=== PATIENT | female | born 1935 | race Caucasian/White ===

== ENCOUNTER 2017-07-09 20:56 | Inpatient (IN) ==
[2017-07-11] MEDS ORDERED: HydrOXYzine SYP 10 MG/5 ML UDC PO PRN ×2 (11:26→15:56)
[2017-07-11] MEDS: *HR* OxyCODONE Immed Rel 5 MG TABLET PO PRN ×2 (12:29→21:56)
--- NOTE | 2017-07-11 13:37 | Internal Med History&Physical ---
Date of Encounter: 07/11/17 Time of Encounter: 13:35 Assessment and Plan (1) Status post total knee replacement, right Current visit: No Status: Acute PT\OT to eval and treat. Continue current pain regimen. Follow up with ortho as scheduled. (2) HTN (hypertension) Current visit: No Status: Chronic Controlled with current medication. Continue to monitor blood pressure Qualifiers: Hypertension type: essential hypertension Qualified Code(s): I10 - Essential (primary) hypertension (3) Obesity (BMI 35.0-39.9 without comorbidity) Current visit: No Status: Chronic Educate on weight loss and diet. Internal Medicine - H&P: HPI Admitted From: Intrahospital Transfer Plans for Post Hospital Care: Home History of present illness: Ms. Nassar is a 81 year old female admitted to rehab status post right total knee arthroplasty. Patient to participate with PT\OT. Past medical history includes arthritis of right knee, vasculitis, TIA, hypertension. Patient taking oxycodone IR for pain control. States that it is effective. Past Med Surg Social Fam HX - Past Medical History Medical history: cancer, hyperlipidemia, hypertension Psychiatric history: no psych history - Past Surgical History Surgical History: cholecystectomy, other - Social History Smoking Status: Never smoker Smokeless Tobacco Status: No Alcohol use: none Drug use: none - Family History Mother Living Status: Hx Family Cardiac Disorders: Yes Brother Living Status: Internal Medicine - H&P: Meds Levothyroxine [Synthroid] 112 mcg PO DAILY 03/20/15 [History] Metoprolol [Lopressor] 50 mg PO BID 03/20/15 [History] Calcium Carbonate/Vitamin D3 [Calcium 600 + Vit D Tablet] 1 tab PO BID 04/23/16 [History] predniSONE [PredniSONE] 10 mg PO QDPC 03/18/17 [History] Atorvastatin [Lipitor] 20 mg PO HS #30 tablet 03/19/17 [Rx] Lisinopril [Zestril] 5 mg PO DAILY #30 tablet 03/19/17 [Rx] Aspirin [Lo-Dose Aspirin EC] 81 mg PO DAILY 07/11/17 [History] Loratadine [Allergy Relief] 10 mg PO DAILY 07/11/17 [History] hydrOXYzine HCl [Hydroxyzine HCl] 10 mg PO QID PRN 07/11/17 [History] 3 Allergy/AdvReac Type Severity Reaction Status Date / Time No Known Allergies Allergy Verified 03/18/17 09:39 All Systems PM: A 10-system review of systems was performed and is negative for pertinent findings except as documented above in the HPI. - Constitutional Constitutional: no chills, no fever(s), no night sweats - EENT Eyes: no change in vision, no discharge, no pain, no photophobia Ears: no ear discharge, no ear pain, no tinnitus Nose, mouth and throat: no dysphagia, no nasal discharge, no neck pain, no sore throat - Cardiovascular Cardiovascular ROS IM: no chest pain, no diaphoresis, no dyspnea, no lightheadedness, no palpitations, no syncope - Respiratory Respiratory: no cough, no dyspnea, no wheezing, no excessive phlegm production - Gastrointestinal Gastrointestinal: no abdominal pain, no diarrhea, no hematemesis, no hematochezia, no melena, no nausea, no vomiting - Genitourinary Genitourinary: no change in urinary stream, no dysuria, no flank pain, no hematuria - Musculoskeletal Musculoskeletal ROS IM: no numbness, no tingling - Integumentary Integumentary IM: no rash, no unusual bruising - Neurological Neurological ROS: no confusion, no convulsions, no focal weakness, no numbness, no tingling, no tremor(s) - Hematologic/Lymphatic Hematologic/Lymphatic: no easy bruising - Constitutional Vitals: Temp Pulse Resp BP Pulse Ox 98.3 F 71 20 130/49 96 07/11/17 11:16 07/11/17 11:16 07/11/17 11:16 07/11/17 11:16 07/11/17 11:16 General appearance: Present: A&O X 3, pleasant, no acute distress, answers questions appropriately - Head Head exam: Present: atraumatic, normocephalic - Eye Eye exam: Present: PERRL, conjuntiva pink, sclera anicteric Pupils: Present: PERRL - Neck Neck exam general surgery: Present: supple, trachea midline. Absent: lymphadenopathy - Respiratory Respiratory exam: Present: CTAB. Absent: accessory muscle use, rales, rhonchi, wheezes - Cardiovascular Cardiovascular exam: Present: RRR, +S1, +S2. Absent: diastolic murmur, gallop, rubs, systolic murmur - GI/Abdominal GI/Abdominal exam: Present: normal bowel sounds, soft, no peritoneal signs. Absent: distended, tenderness - Extremities Exam Extremities exam: Present: warm, radial pulses palpable and symmetrical. Absent : calf tenderness, cyanotic, pedal edema - Neurological Exam Neurological exam: Present: CN II-XII intact, oriented X3, no focal deficits. Absent: pronater drift, facial droop, speech deficit - Skin Skin exam: Present: dry, intact
[2017-07-11] MEDS ORDERED: Bisacodyl 10 MG RECTAL SUPPOSITORY RC PRN (18:55)
[2017-07-11] MEDS ORDERED: Aspirin Enteric Coated 325 MG Tablet PO SCH (21:00)
[2017-07-11] MEDS ORDERED: NON-FORMULARY MEDICATION 1 EACH EACH (Calcium Carbonate/Vitamin D3 [Calcium 600 + Vit D Ta PO SCH (21:00)
[2017-07-12] MEDS: Acetaminophen 325 MG TABLET PO PRN ×3 (03:12→20:49)
[2017-07-12 06:03] LABS: Basophils # 0.1 K/mcL (0.0-0.2); Basophils % 0.6 %; Eosinophils # 0.3 K/mcL (0.0-0.6); Eosinophils % 3.8 %; Hematocrit 28.1 % (35.3-44.9); Hemoglobin 9.1 g/dL (11.5-15.4); Immature Granulocytes % 0.2 % (0-4); Lymphocytes # 1.9 K/mcL (0.6-4.6); Mean Corpuscular HGB Conc 32.4 g/dL (31.6-35.5); Mean Corpuscular Hemoglobin 32.5 pg (28.0-33.3); Mean Corpuscular Volume 100.4 fL (83.0-100.0); Mean Platelet Volume 10.8 fL (9.4-12.4); Monocytes # 0.8 K/mcL (0.0-1.3); Monocytes % 9.4 %; Neutrophils # 5.2 K/mcL (1.6-8.9); Platelet Count 212 K/mcL (140-400); Red Cell Distribution Width 13.7 % (11.5-14.5)
[2017-07-12 06:06] LABS: INR 1.1; Prothrombin Time 11.5 Seconds (9.4-12.1)
[2017-07-12 06:09] LABS: Activated Partial Thrombo Time 26.4 Seconds (26.0-36.0)
[2017-07-12 06:17] LABS: Calcium 8.9 mg/dL (8.6-10.3); Potassium 3.7 mEq/L (3.5-5.1)
[2017-07-12] MEDS: *HR* Enoxaparin 40 MG/0.4 ML SYRINGE SQ SCH (07:03)
[2017-07-12] MEDS ORDERED: Loratadine 10 MG TABLET PO SCH (09:00)
[2017-07-12] MEDS: predniSONE 10 MG TABLET PO SCH (09:26)
[2017-07-12] MEDS: Cholecalciferol (D-3) 1,000 UNIT TABLET PO SCH (09:27)
[2017-07-12] MEDS: *HR* OxyCODONE Immed Rel 5 MG TABLET PO PRN ×2 (10:53→16:54)
--- NOTE | 2017-07-12 13:46 | Internal Med Progress Note ---
Date of Encounter: 07/12/17 Time of Encounter: 13:45 - Assessment and plan (1) Status post total knee replacement, right Current Visit: No Status: Acute Assessment and plan: Doing well, postop. I believe that change of environment and/or narcotics contributed to mild delirium and/or disorientation. We will continue with therapies as planned and follow. (2) Vasculitis Current Visit: No Status: Chronic Assessment and plan: Clinically stable. We will continue home regimen and follow. (3) HTN (hypertension) Current Visit: No Status: Chronic Assessment and plan: Clinically stable. We will continue home regimen and follow. Qualifiers: Hypertension type: essential hypertension Qualified Code(s): I10 - Essential (primary) hypertension (4) DVT prophylaxis Current Visit: No Status: Acute Assessment and plan: On Lovenox.. (5) Obesity (BMI 35.0-39.9 without comorbidity) Current Visit: No Status: Chronic (6) Urinary retention Current Visit: Yes Status: Acute Assessment and plan: This is long-standing and treated with an implant. She is to have a Milan catheter in place until seen by her urologist. - Time Spent With Patient 25 - 35 minutes - Subjective Interval history: Patient is feeling well. She denies current complaints but is still having pain in her knee. She had a significant event last night at about 9:30 where she was upset that she was being a nor by staff. She remember some details but others are in error. She states she had been trying to get hold of people for 2 hours. However, I was at the nurses station and there are parts of this that do not follow. Other words, she was not ringing her call light which worked at the time. She is not moving her bowels and we discussed the use of suppositories which prefers to wait for another day. - Constitutional Vitals: Temp Pulse Resp BP Pulse Ox 98.3 F 68 17 131/80 97 07/12/17 10:59 07/12/17 10:59 07/12/17 10:59 07/12/17 10:59 07/12/17 10:59 General appearance: Present: A&O X 3, pleasant, no acute distress, answers questions appropriately Exam: Examination: (Except as mentioned above): General: In no apparent distress. Alert and oriented 3. Nondiaphoretic. Head: Atraumatic and normocephalic. Respiratory: No use of accessory muscles. Lungs are clear throughout. Normal airflow. Cardiovascular: Regular rate and rhythm without murmur appreciated. Abdomen: Bowel sounds are normal. No hepatosplenomegaly mass or tenderness appreciated. Obese and therefore difficult to palpate deeply. Extremities: No cyanosis clubbing or edema. Skin: Warm and non-diaphoretic with no new lesions noted. Internal Medicine: Result - Labs CBC & Chem 7: 07/12/17 05:58 07/12/17 05:58 Labs: Short CBC 07/12/17 Range/Units 05:58 WBC 8.2 (4.3-11.1) K/mcL Hgb 9.1 L (11.5-15.4) g/dL Hct 28.1 L (35.3-44.9) % Plt Count 212 (140-400) K/mcL Neutrophils # 5.2 (1.6-8.9) K/mcL BMP 07/12/17 05:58 Sodium 139 Potassium 3.7 Chloride 102 Carbon Dioxide 30 H BUN 26 H Creatinine 1.08 Glucose 101 Calcium 8.9 - ABG Interpretation ABG results: PT/INR, D-dimer PT 11.5 Seconds (9.4-12.1) 07/12/17 05:58 Consult Discharge Plan - Plan Referrals: Elier Quiroz Jr, MD [Primary Care Provider] -
[2017-07-13] MEDS: *HR* Enoxaparin 40 MG/0.4 ML SYRINGE SQ SCH (05:50)
[2017-07-13] MEDS: *HR* OxyCODONE Immed Rel 5 MG TABLET PO PRN ×3 (05:54→18:39)
--- NOTE | 2017-07-13 07:05 | Internal Med Progress Note ---
Date of Encounter: 07/13/17 Time of Encounter: 07:02 - Assessment and plan (1) Status post total knee replacement, right Current Visit: No Status: Acute Assessment and plan: Doing well, postop. Postoperative constipation will be treated with Dulcolax suppository until she has a bowel movement.. (2) Vasculitis Current Visit: No Status: Chronic Assessment and plan: Clinically stable. We will continue home regimen and follow. (3) HTN (hypertension) Current Visit: No Status: Chronic Assessment and plan: Clinically stable. We will continue home regimen and follow. Qualifiers: Hypertension type: essential hypertension Qualified Code(s): I10 - Essential (primary) hypertension (4) DVT prophylaxis Current Visit: No Status: Acute Assessment and plan: On Lovenox.. (5) Obesity (BMI 35.0-39.9 without comorbidity) Current Visit: No Status: Chronic (6) Urinary retention Current Visit: Yes Status: Acute Assessment and plan: She is concerned about keeping the catheter in. I told her that we would comply with her urologist's recommendations to keep him until follow-up visit with him. - Time Spent With Patient 25 - 35 minutes - Subjective Interval history: Patient is feeling generally well and slept well, last night. There is no report of inappropriate interactions with staff. She is feeling somewhat uncomfortable from her constipation would like a suppository. She denies other acute issues in her pain level is acceptable. Patient has no complaint of chest discomfort, dyspnea, orthopnea, palpitations, nausea or vomiting, constipation or diarrhea, other changes in bowel habits, difficulty with urination, rash or itching, or other new complaints, except as mentioned above. Review of systems is otherwise unremarkable. - Constitutional Vitals: Temp Pulse Resp BP Pulse Ox 98.2 F 80 18 158/66 99 07/12/17 19:11 07/12/17 19:11 07/12/17 19:11 07/12/17 19:11 07/12/17 19:11 General appearance: Present: A&O X 3, pleasant, no acute distress, answers questions appropriately Exam: Examination: (Except as mentioned above): General: In no apparent distress. Alert and oriented 3. Nondiaphoretic. Head: Atraumatic and normocephalic. Respiratory: No use of accessory muscles. Lungs are clear throughout. Normal airflow. Cardiovascular: Regular rate and rhythm without murmur appreciated. Abdomen: Bowel sounds are normal. No hepatosplenomegaly mass or tenderness appreciated. Obese and therefore difficult to palpate deeply. Extremities: No cyanosis clubbing or other changes except for postoperative surgical swelling and erythema with an intact dressing and appropriate postoperative appearance.. Skin: Warm and non-diaphoretic with no new lesions noted. Internal Medicine: Result - Labs CBC & Chem 7: 07/12/17 05:58 07/12/17 05:58 - ABG Interpretation ABG results: PT/INR, D-dimer PT 11.5 Seconds (9.4-12.1) 07/12/17 05:58 Consult Discharge Plan - Plan Referrals: Elier Quiroz Jr, MD [Primary Care Provider] -
[2017-07-13] MEDS: Acetaminophen 325 MG TABLET PO PRN ×3 (08:47→21:41)
[2017-07-13] MEDS: Cholecalciferol (D-3) 1,000 UNIT TABLET PO SCH (08:47)
[2017-07-13] MEDS: predniSONE 10 MG TABLET PO SCH (08:48)
[2017-07-13] MEDS: Bisacodyl 10 MG RECTAL SUPPOSITORY RC SCH (10:54)
[2017-07-14] MEDS: *HR* OxyCODONE Immed Rel 5 MG TABLET PO PRN ×3 (00:48→17:41)
[2017-07-14] MEDS: Acetaminophen 325 MG TABLET PO PRN ×2 (05:51→11:52)
[2017-07-14] MEDS: *HR* Enoxaparin 30 MG/0.3 ML SYRINGE SQ SCH (05:52)
[2017-07-14 06:46] LABS: Basophils % 0.5 %; Eosinophils # 0.4 K/mcL (0.0-0.6); Eosinophils % 5.2 %; Hematocrit 30.3 % (35.3-44.9); Hemoglobin 9.6 g/dL (11.5-15.4); Immature Granulocytes % 0.4 % (0-4); Lymphocytes # 2.2 K/mcL (0.6-4.6); Lymphocytes % 29.4 %; Mean Corpuscular HGB Conc 31.7 g/dL (31.6-35.5); Mean Corpuscular Hemoglobin 32.2 pg (28.0-33.3); Mean Corpuscular Volume 101.7 fL (83.0-100.0); Mean Platelet Volume 10.8 fL (9.4-12.4); Monocytes # 0.7 K/mcL (0.0-1.3); Monocytes % 8.9 %; Neutrophils # 4.1 K/mcL (1.6-8.9); Platelet Count 252 K/mcL (140-400); Red Blood Count 2.98 M/mcL (3.82-4.97); Red Cell Distribution Width 13.7 % (11.5-14.5); Segmented Neutrophils % 55.6 %
[2017-07-14 07:10] LABS: Calcium 9.2 mg/dL (8.6-10.3); Potassium 3.8 mEq/L (3.5-5.1)
--- NOTE | 2017-07-14 08:18 | Internal Med Progress Note ---
Date of Encounter: 07/14/17 Time of Encounter: 08:17 - Assessment and plan (1) Status post total knee replacement, right Current Visit: No Status: Acute (2) HTN (hypertension) Current Visit: No Status: Chronic Qualifiers: Hypertension type: essential hypertension Qualified Code(s): I10 - Essential (primary) hypertension (3) Obesity (BMI 35.0-39.9 without comorbidity) Current Visit: No Status: Chronic - Subjective Interval history: Patient participating well with therapy. States pain is controlled with current medications. Ambulating with Walker with contact gaurd assist. Denies fever. Chills. Nausea, vomiting, diarrhea. - Constitutional Vitals: Temp Pulse Resp BP Pulse Ox 98.5 F 71 16 160/81 95 07/14/17 07:00 07/14/17 07:00 07/14/17 07:00 07/14/17 07:00 07/14/17 07:00 General appearance: Present: A&O X 3, pleasant, no acute distress, answers questions appropriately - Head Head exam: Present: atraumatic, normocephalic - Eye Eye exam: Present: PERRL, conjuntiva pink, sclera anicteric Pupils: Present: PERRL - Neck Neck exam general surgery: Present: supple, trachea midline. Absent: lymphadenopathy - Respiratory Respiratory exam: Present: CTAB. Absent: accessory muscle use, rales, rhonchi, wheezes - Cardiovascular Cardiovascular exam: Present: RRR, +S1, +S2. Absent: diastolic murmur, gallop, rubs, systolic murmur - GI/Abdominal GI/Abdominal exam: Present: normal bowel sounds, soft, no peritoneal signs. Absent: distended, tenderness - Extremities Exam Extremities exam: Present: warm, radial pulses palpable and symmetrical. Absent : calf tenderness, cyanotic, pedal edema - Neurological Exam Neurological exam: Present: CN II-XII intact, oriented X3, no focal deficits. Absent: pronater drift, facial droop, speech deficit - Skin Skin exam: Present: dry, intact Additional comments: Right knee surgical incision. Dressing dry and intact. Slight edema surrounding incision. No signs of infection. Internal Medicine: Result - Labs CBC & Chem 7: 07/14/17 06:10 07/14/17 06:10 Labs: Short CBC 07/14/17 Range/Units 06:10 WBC 7.4 (4.3-11.1) K/mcL Hgb 9.6 L (11.5-15.4) g/dL Hct 30.3 L (35.3-44.9) % Plt Count 252 (140-400) K/mcL Neutrophils # 4.1 (1.6-8.9) K/mcL BMP 07/14/17 06:10 Sodium 139 Potassium 3.8 Chloride 103 Carbon Dioxide 30 H BUN 21 Creatinine 1.08 Glucose 95 Calcium 9.2 - ABG Interpretation ABG results: PT/INR, D-dimer PT 11.5 Seconds (9.4-12.1) 07/12/17 05:58 Consult Discharge Plan - Plan Referrals: Elier Quiroz Jr, MD [Primary Care Provider] -
[2017-07-14] MEDS: predniSONE 10 MG TABLET PO SCH (08:43)
[2017-07-14] MEDS: Cholecalciferol (D-3) 1,000 UNIT TABLET PO SCH (08:43)
[2017-07-14] MEDS: Bisacodyl 10 MG RECTAL SUPPOSITORY RC SCH (08:44)
[2017-07-15] MEDS: *HR* OxyCODONE Immed Rel 5 MG TABLET PO PRN ×3 (05:47→18:20)
[2017-07-15] MEDS: *HR* Enoxaparin 30 MG/0.3 ML SYRINGE SQ SCH (05:47)
[2017-07-15] MEDS: Cholecalciferol (D-3) 1,000 UNIT TABLET PO SCH (07:50)
[2017-07-15] MEDS: predniSONE 10 MG TABLET PO SCH (07:51)
--- NOTE | 2017-07-15 11:09 | Internal Med Progress Note ---
Date of Encounter: 07/15/17 Time of Encounter: 11:07 - Assessment and plan (1) Status post total knee replacement, right Current Visit: No Status: Acute Assessment and plan: Continue PT\OT. Will follow progress. Follow up with ortho as scheduled. Continue current pain regimen. (2) HTN (hypertension) Current Visit: No Status: Chronic Assessment and plan: Controlled with current medication. Monitor blood pressure. Qualifiers: Hypertension type: essential hypertension Qualified Code(s): I10 - Essential (primary) hypertension (3) Obesity (BMI 35.0-39.9 without comorbidity) Current Visit: No Status: Chronic Assessment and plan: Education provided. - Time Spent With Patient less than 15 minutes - Subjective Interval history: Patient participating well with therapy. States pain is controlled with current medications. Ambulating with Walker with SBA. Denies fever. Chills. Nausea, vomiting, diarrhea. Planning to discharge to home with outpatient therapy on July 17. - Constitutional Vitals: Temp Pulse Resp BP Pulse Ox 98.1 F 71 16 135/58 93 07/15/17 06:00 07/15/17 06:00 07/15/17 06:00 07/15/17 06:00 07/15/17 06:00 General appearance: Present: A&O X 3, pleasant, no acute distress, answers questions appropriately - Head Head exam: Present: atraumatic, normocephalic - Eye Eye exam: Present: PERRL, conjuntiva pink, sclera anicteric Pupils: Present: PERRL - Neck Neck exam general surgery: Present: supple, trachea midline. Absent: lymphadenopathy - Respiratory Respiratory exam: Present: CTAB. Absent: accessory muscle use, rales, rhonchi, wheezes - Cardiovascular Cardiovascular exam: Present: RRR, +S1, +S2. Absent: diastolic murmur, gallop, rubs, systolic murmur - GI/Abdominal GI/Abdominal exam: Present: normal bowel sounds, soft, no peritoneal signs. Absent: distended, tenderness - Extremities Exam Extremities exam: Present: warm, radial pulses palpable and symmetrical. Absent : calf tenderness, cyanotic, pedal edema - Neurological Exam Neurological exam: Present: CN II-XII intact, oriented X3, no focal deficits. Absent: pronater drift, facial droop, speech deficit - Skin Skin exam: Present: dry, intact Additional comments: Right knee incision. Dressing dry and intact. Slight edema and ecchymosis around incision. no sign Of infection. Internal Medicine: Result - Labs CBC & Chem 7: 07/14/17 06:10 07/14/17 06:10 - ABG Interpretation ABG results: PT/INR, D-dimer PT 11.5 Seconds (9.4-12.1) 07/12/17 05:58 Consult Discharge Plan - Plan Referrals: Elier Quiroz Jr, MD [Primary Care Provider] -
[2017-07-15] MEDS: Bisacodyl 10 MG RECTAL SUPPOSITORY RC SCH (11:16)
[2017-07-15 19:23] LABS: Bilirubin,Urine Negative (Negative); Blood,Urine Trace-intact (Negative); Clarity,Urine Slightly Cloudy (Clear); Glucose,Urine (UA) 100 mg/dL (Normal); Ketones,Urine Negative (Negative); Leukocyte Esterase,Urine Negative (Negative); Nitrite,Urine Negative (Negative); Protein,Urine Negative (Neg-Trace); Specific Gravity,Urine <= 1.005 (1.010-1.025); Urobilinogen,Urine Normal (Normal)
[2017-07-15 19:24] LABS: Color,Urine Yellow (Yellow)
[2017-07-15 19:25] LABS: RBC,Urine 0-3 per hpf (0-3)
[2017-07-15] MEDS: Acetaminophen 325 MG TABLET PO PRN (20:49)
[2017-07-16] MEDS: *HR* OxyCODONE Immed Rel 5 MG TABLET PO PRN ×3 (04:14→18:37)
[2017-07-16] MEDS: *HR* Enoxaparin 30 MG/0.3 ML SYRINGE SQ SCH (04:14)
[2017-07-16] MEDS: Acetaminophen 325 MG TABLET PO PRN ×3 (07:00→22:14)
[2017-07-16] MEDS: Cholecalciferol (D-3) 1,000 UNIT TABLET PO SCH (08:39)
[2017-07-16] MEDS: predniSONE 10 MG TABLET PO SCH (08:39)
[2017-07-16] MEDS: Bisacodyl 10 MG RECTAL SUPPOSITORY RC SCH (08:40)
--- NOTE | 2017-07-16 12:00 | Internal Med Progress Note ---
Date of Encounter: 07/16/17 Time of Encounter: 11:58 - Assessment and plan (1) Status post total knee replacement, right Current Visit: No Status: Acute Assessment and plan: Continue PT\OT. Improving. Plan for discharge tomorrow. Follow up with ortho as scheduled. Continue current pain regimen. (2) HTN (hypertension) Current Visit: No Status: Chronic Assessment and plan: Controlled with current medication. Monitor blood pressure. Qualifiers: Hypertension type: essential hypertension Qualified Code(s): I10 - Essential (primary) hypertension (3) Bladder spasm Current Visit: Yes Status: Acute Assessment and plan: Continue current pyridium as needed. Will remove Milan catheter today and monitor post void residual. Follow up with urology as scheduled. - Time Spent With Patient 25 - 35 minutes - Subjective Interval history: Patient up and dining room for lunch. Participating well with therapy. States feels ready to go home tomorrow. Complaining of increase bladder spasms last night that were very painful. Patient was given pyridium and pain resolved. Will discontinue Milan catheter today. Urinalysis was sent out. Patient denies fever, chills, nausea, vomiting or diarrhea. Bowels moving as normal. - Constitutional Vitals: Temp Pulse Resp BP Pulse Ox 98.7 F 71 16 122/60 95 07/16/17 07:00 07/16/17 07:00 07/16/17 07:00 07/16/17 07:00 07/16/17 07:00 General appearance: Present: A&O X 3, pleasant, no acute distress, answers questions appropriately - Head Head exam: Present: atraumatic, normocephalic - Eye Eye exam: Present: PERRL, conjuntiva pink, sclera anicteric Pupils: Present: PERRL - Neck Neck exam general surgery: Present: supple, trachea midline. Absent: lymphadenopathy - Respiratory Respiratory exam: Present: CTAB. Absent: accessory muscle use, rales, rhonchi, wheezes - Cardiovascular Cardiovascular exam: Present: RRR, +S1, +S2. Absent: diastolic murmur, gallop, rubs, systolic murmur - GI/Abdominal GI/Abdominal exam: Present: normal bowel sounds, soft, no peritoneal signs. Absent: distended, tenderness - Extremities Exam Extremities exam: Present: warm, radial pulses palpable and symmetrical. Absent : calf tenderness, cyanotic, pedal edema - Incison Comments: Incision on right knee well approximated. No drainage. Dressing dry and intact. Slight edema to surrounding incision. No sign of infection. - Neurological Exam Neurological exam: Present: CN II-XII intact, oriented X3, no focal deficits. Absent: pronater drift, facial droop, speech deficit - Skin Skin exam: Present: dry, intact Additional comments: Ecchymosis present bilateral upper extremities. Internal Medicine: Result - Labs CBC & Chem 7: 07/14/17 06:10 07/14/17 06:10 Labs: Urine 07/15/17 Range/Units 18:00 Urine Color Yellow (Yellow) Urine Clarity Slightly Cloudy A (Clear) Urine pH 6.0 (5.0-8.0) pH Units Ur Specific [place] <= 1.005 L (1.010-1.025) Urine Protein Negative (Neg-Trace) mg/dL Urine Glucose (UA) 100 H (Normal) mg/dL - ABG Interpretation ABG results: PT/INR, D-dimer PT 11.5 Seconds (9.4-12.1) 07/12/17 05:58 Consult Discharge Plan - Plan Referrals: Elier Quiroz Jr, MD [Primary Care Provider] -
[2017-07-17] MEDS: *HR* OxyCODONE Immed Rel 5 MG TABLET PO PRN ×2 (04:16→11:16)
[2017-07-17] MEDS: *HR* Enoxaparin 30 MG/0.3 ML SYRINGE SQ SCH (04:17)
[2017-07-17 06:56] VITALS: BP 134/50
[2017-07-17] MEDS: Acetaminophen 325 MG TABLET PO PRN (08:32)
[2017-07-17] MEDS: Bisacodyl 10 MG RECTAL SUPPOSITORY RC SCH (08:33)
[2017-07-17] MEDS: Cholecalciferol (D-3) 1,000 UNIT TABLET PO SCH (08:33)
[2017-07-17] MEDS: predniSONE 10 MG TABLET PO SCH (08:33)
--- NOTE | 2017-07-17 08:45 | Discharge Summary ---
Orders not resulted at time of discharge: Pending orders 07/21/17 04:00 Activated Partial Thrombo Time [COAG] MO Basic Metabolic Panel MO Complete Blood Count [HEME] MO 07/28/17 04:00 Activated Partial Thrombo Time [COAG] MO Basic Metabolic Panel MO Complete Blood Count [HEME] MO Date of Encounter: 07/17/17 Time of Encounter: 07:30 - Discharge Diagnosis (1) Status post total knee replacement, right Priority: Primary Status: Acute (2) Vasculitis Priority: Secondary Status: Chronic (3) HTN (hypertension) Priority: Secondary Status: Chronic Qualifiers: Hypertension type: essential hypertension Qualified Code(s): I10 - Essential (primary) hypertension (4) DVT prophylaxis Priority: Secondary Status: Acute (5) Obesity (BMI 35.0-39.9 without comorbidity) Priority: Secondary Status: Chronic (6) Urinary retention Priority: Secondary Status: Acute Hospital course: Ms. Nassar is a 81 year old female who was transferred from an outside facility after right total knee replacement, day 4. She had significant pain and had an indwelling Milan catheter. She was begun in physical and occupational therapies and progressed well to a level that was believed to be independent and safe for home. About 3 days prior to discharge, she developed bladder spasm of significant severity and she did not exhibit a urinary tract infection and she responded to Pyridium. Intraurinary catheter was kept in place until the day prior to discharge when her urologist prescribed that it be removed and a voiding trial be tempted. She voided well. She had mild acute blood loss anemia which was stable during her hospitalization with us. She is to follow-up with her primary care physician, Dr. Quiroz, and has an orthopedic follow-up with Dr. fierro, tomorrow. She is to have outpatient physical therapy and her family will transport her. Discharge discussed with: patient - Time Spent with Patient Total time spent providing and/or coordinating discharge services: Less than 30 minutes - Discharge Medications Prescriptions: Cyclobenzaprine [Flexeril] 5 mg PO TID PRN #20 tablet PRN Reason: Spasms Home Medications: Levothyroxine [Synthroid] 112 mcg PO DAILY 03/20/15 [History] Metoprolol [Lopressor] 50 mg PO BID 03/20/15 [History] Calcium Carbonate/Vitamin D3 [Calcium 600 + Vit D Tablet] 1 tab PO BID 04/23/16 [History] predniSONE [PredniSONE] 10 mg PO QDPC 03/18/17 [History] Atorvastatin [Lipitor] 20 mg PO HS #30 tablet 03/19/17 [Rx] Lisinopril [Zestril] 5 mg PO DAILY #30 tablet 03/19/17 [Rx] Aspirin [Lo-Dose Aspirin EC] 81 mg PO DAILY 07/11/17 [History] hydrOXYzine HCl [Hydroxyzine HCl] 10 mg PO QID PRN 07/11/17 [History] Cyclobenzaprine [Flexeril] 5 mg PO TID PRN #20 tablet 07/17/17 [Rx] Allergies/Adverse Reactions: 3 Allergy/AdvReac Type Severity Reaction Status Date / Time No Known Allergies Allergy Verified 03/18/17 09:39 Date of admission: 07/11/17 11:07 Primary care physician: Elier Quiroz Jr, MD Consults: 07/11/17 11:28 Consult to Occupational Therapy [CONS] Routine Comment: Evaluate, develop and implement POC Reason for Consult: RTKR Does patient have active BEDREST order?: No Is patient medically & hemodynamically stable?: Yes Patient assessed for mobility or mobilized this visit?: Yes Consult to Physical Therapy [CONS] Routine Comment: Evaluate, develop and implement POC Reason for Consult: RTKR Does patient have active BEDREST order?: No Is patient medically & hemodynamically stable?: Yes Patient assessed for mobility or mobilized this visit?: Yes Discharging clinician: Cb Garland Anticipated date of discharge: 07/17/17 - Constitutional Vitals: Temp Pulse Resp BP Pulse Ox 98.3 F 73 16 134/50 95 07/17/17 06:53 07/17/17 06:53 07/17/17 06:53 07/17/17 06:53 07/17/17 06:53 General appearance: Present: A&O X 3, pleasant, no acute distress, answers questions appropriately Exam: Examination: (Except as mentioned above): General: In no apparent distress. Alert and oriented 3. Nondiaphoretic. Head: Atraumatic and normocephalic. Respiratory: No use of accessory muscles. Lungs are clear throughout. Normal airflow. Cardiovascular: Regular rate and rhythm without murmur appreciated. Abdomen: Bowel sounds are normal. No hepatosplenomegaly mass or tenderness appreciated. Obese and therefore difficult to palpate deeply. Extremities: No cyanosis clubbing or edema, except as is typical, postoperatively. This is improved versus the last several days. There is no cord or calf tenderness. Erythema has also improved in the extremity is no longer as warm as it had been. Skin: Warm and non-diaphoretic with no new lesions noted. - Patient Status Disposition: Home, Self-Care Condition: Good Overall status at discharge: patient is progressing back to baseline - Discharge Instructions Follow Up With: Elier Quiroz Jr, MD [Primary Care Provider] - - Diet and Activity Activity: as per physical therapy
== END 2017-07-17 14:30 | disposition home or self-care (01) | DRG 560 ==
LOC: INPGRE 07-11 11:07